=== PATIENT | female | born 1950 | race Asian ===

== ENCOUNTER 2018-10-31 10:28 | Day surgery (SDC) | payer MEDICARE, OTHER, SELFPAY ==
--- NOTE | 2018-10-31 | PATH_ITS ---
[facility] Accession Number: [id number] . 01 Material submitted: . PART A: colon - POLYP DESCENDING COLON PART B: colon - POLYP TRANSVERSE COLON PART C: sigmoid colon - POLYP SIGMOID COLON PART D: rectum - POLYP RECTUM . 01 Clinical history: . SCREENING COLONOSCOPY . 02 Diagnosis: A. Biopsy, Polyp Descending Colon: Tubular adenoma. . B. Biopsy, Polyp Transverse Colon: Tubular adenoma involving single biopsy fragment. . C. Biopsy, Polyp Sigmoid Colon: Tubular adenoma involving single biopsy fragment. . D. Biopsy, Polyp Rectum: Changes consistent with hyperplastic polyp. MRV/11/01/2018 . 02 Electronically signed: . Dylan Treviño MD, Pathologist NPI- [id number] . 01 Gross description: . Part A: POLYP DESCENDING COLON: Received in formalin is 1 fragment(s) of olmedo, soft tissue measuring 0.3 x 0.2 x 0.2 cm which is entirely submitted and submitted entirely in 1 cassette(s) Part B: POLYP TRANSVERSE COLON: Received in formalin are 2 fragment(s) of olmedo, soft tissue measuring 0.2 x 0.2 x 0.2 cm to 0.4 x 0.3 x 0.2 cm which is entirely submitted and submitted entirely in 1 cassette(s) Part C: POLYP SIGMOID COLON: Received in formalin are 2 fragment(s) of olmedo, soft tissue measuring 0.2 x 0.2 x 0.2 cm to 0.3 x 0.2 x 0.2 cm which is entirely submitted and submitted entirely in 1 cassette(s) Part D: POLYP RECTUM: Received in formalin is 1 fragment(s) of olmedo, soft tissue measuring 0.2 x 0.1 x 0.1 cm which is entirely submitted and submitted entirely in 1 cassette(s) /D[facility] /[facility] . 02 Pathologist provided ICD-10: D12.4 . 02 CPT . 646731, 995334, 600473, 374412 Performed at: 01 [facility] [address] [place] [address], [place], [place] [id number] MD Danny Pedroza MD Phone: [phone] Performed at: [address] [id number] [place], [place] [id number] MD Mary Madera MD Phone: [phone]
[2018-10-31] MEDS: SODIUM CHLORIDE 0.9% 1,000 ML 42 ML IV (10:47)
[2018-10-31 10:53] VITALS: BP 160/91; PULSE 70; RESP 18; TEMP 36.6; O2SAT 97; BMI 28.3
--- NOTE | 2018-10-31 12:23 | PM.HP.1 ---
History of Present Illness History of Present Illness Date Patient Seen: 10/31/18 Time Patient Seen: 12:23 Chief complaint: [id number] SCREENING COLONOSCOPY Narrative: History of polyps Patient History Medical History (Updated 10/31/18 @ 10:57 by Carrie Juan RN) Arthritis (Acute) Cataract fragments in both eyes following surgery (Acute) Hearing loss (Acute) Surgical History (Updated 10/31/18 @ 10:52 by Carrie Juan RN) History of hysterectomy with oophorectomy (Acute) History of total knee arthroplasty (Acute) Social History household members: spouse Family & Social History Social History: household members spouse Meds Home Medications and Allergies Home Medications Medication Instructions Recorded Confirmed Type naproxen sodium [Aleve] 220 mg PO PRN #0 04/15/11 10/31/18 History capsaicin [Arthritis Pain 1 applic TOPICAL BEDTIME 10/31/18 10/31/18 History Relief(capsaic)] loratadine-pseudoephedrine 1 tab PO DAILY PRN 10/31/18 10/31/18 History [Claritin-D 12 Hour] Allergies Allergy/AdvReac Type Severity Reaction Status Date / Time oxycodone Allergy Intermediate Rash Verified 10/31/18 10:44 adhesive Allergy Mild REDNESS/ITC Verified 10/31/18 10:48 HY hydrocodone Allergy Mild Rash Verified 10/31/18 10:44 Exam Vital Signs (past 8 hours): - 10/31/18 10:53 Temperature 97.8 F Pulse Rate 70 Respiratory Rate 18 Blood Pressure 160/91 H Pulse Oximetry 97 Oxygen Delivery Method Room Air Narrative Exam Narrative: Oropharynx free of lesions Chest clear to auscultation percussion Cardiac exam reveals no S3 or murmur Assessment & Plan Assessment & Plan narrative: History of polyps need for follow-up colonoscopy. Risks, benefits, alternatives have been explained.
--- NOTE | 2018-10-31 12:24 | PM.OP.ENDO ---
Operative Date/Time/Diagnoses Date of procedure: 10/31/18 Time of procedure: 12:25 Pre-op diagnosis: See indication and findings Procedure & Clinicians Study performed: Colonoscopy Same procedure as scheduled: Yes Indications: History of polyps Surgeon: Ross Newell Procedure Notes Procedure in detail: After informed consent was obtained the patient was placed in the left lateral decubitus position. The video colonoscope was introduced in the rectum and slowly advanced cecum. On slow withdrawal mucosa was carefully examined. The scope was removed. The patient tolerated procedure well. Preparation was good. Blood loss none Complications none Sedation Total sedation time 17 minutes Fentanyl 100 mg versed 3 mg IV titration During patient sedation clearly had episodes of sleep apnea. Findings 1. Small polyp in the descending colon Jumbo biopsy removed completely 2. Small polyp in the transverse colon Jumbo biopsy removed completely 3. Two diminutive polyps in the sigmoid colon both Jumbo biopsy removed completely 4. 3 mm polyp in the rectum Jumbo biopsy removed completely 5. Scattered diverticular disease through the sigmoid We will be in touch regarding biopsy results will she will probably need follow-up colonoscopy in 3 years. In the meantime I would suggest evaluation with a sleep study for her sleep apnea
[2018-10-31] MEDS: fentaNYL 250 MCG/5 ML INJ IV (12:40)
[2018-10-31] MEDS: MIDAZOLAM 5 MG/5 ML VIAL IV (12:51)
[2018-10-31 12:52] VITALS: BP 132/68; PULSE 67; RESP 15; TEMP 36.1; O2SAT 94
[2018-10-31 12:57] VITALS: BP 105/68; PULSE 68; RESP 15; O2SAT 92
[2018-10-31 13:02] VITALS: BP 140/83; PULSE 68; RESP 12; TEMP 36.5; O2SAT 96
== END 2018-10-31 13:17 | disposition home or self-care (01) ==
PROVIDERS: PCP Family Medicine; Visit Provider Internal Medicine Gastroenterology
PROC: 0DJD8ZZ Inspection of Lower Intestinal Tract, Via Natural or Artificial Opening Endoscopic (ICD-10-PCS; CPT 45378; principal; 2018-10-31 12:00)
DX: Z86.010 Personal history of colon polyps (principal); D12.4 Benign neoplasm of descending colon; D12.5 Benign neoplasm of sigmoid colon; D12.3 Benign neoplasm of transverse colon; K57.30 Diverticulosis of large intestine without perforation or abscess without bleeding; K62.1 Rectal polyp
CPT/HCPCS: 45380; 88305; J2250; J3010

== ENCOUNTER → 2019-01-12 10:18 | Outpatient (CLI) | payer MEDICARE, OTHER, SELFPAY ==
--- NOTE | 2019-01-12 | DI.MG.S_ITS ---
BILATERAL DIGITAL SCREENING MAMMOGRAM 3D/2D WITH CAD: 01/12/2019 CLINICAL: Routine screening. Comparison is made to exams dated: 12/28/2014 mammogram, 12/21/2015 mammogram, and 12/05/2017 mammogram - [facility]. The tissue of both breasts is predominantly fatty. Current study was also evaluated with a Computer Aided Detection (CAD) system. No significant masses, calcifications, or other findings are seen in either breast. There has been no significant interval change. IMPRESSION: NEGATIVE There is no mammographic evidence of malignancy. A 1 year screening mammogram is recommended. This exam was interpreted at Station ID: [id number]. NOTE: For mammograms, a report in lay terms will be sent to the patient. Approximately 15% of breast malignancies will not be visualized mammographically. In the management of a palpable breast mass, a negative mammogram must not discourage biopsy of a clinically suspicious lesion. Electronically Signed By: Frandy Ag M.D. at/kitty:01/13/2019 12:54:44 letter sent: Normal Exam ACR BI-RADS Category 1: Negative 3341F
== END ==
PROVIDERS: PCP Family Medicine; Visit Provider Family Medicine
DX: Z12.31 Encounter for screening mammogram for malignant neoplasm of breast (principal)
CPT/HCPCS: 77063; 77067

== ENCOUNTER → 2020-01-31 17:22 | Outpatient (CLI) | payer MEDICARE, OTHER, SELFPAY ==
--- NOTE | 2020-01-31 17:24 | DI.MG.S_ITS ---
BILATERAL DIGITAL SCREENING MAMMOGRAM 3D/2D WITH CAD: 01/31/2020 CLINICAL: Routine screening. Comparison is made to exams dated: 01/12/2019 mammogram - [facility], 12/05/2017 mammogram, and 12/21/2015 mammogram - [facility]. The tissue of both breasts is predominantly fatty. Current study was also evaluated with a Computer Aided Detection (CAD) system. No significant masses, calcifications, or other findings are seen in either breast. There has been no significant interval change. IMPRESSION: NEGATIVE There is no mammographic evidence of malignancy. A 1 year screening mammogram is recommended. This exam was interpreted at Station ID: [id number]. NOTE: For mammograms, a report in lay terms will be sent to the patient. Approximately 15% of breast malignancies will not be visualized mammographically. In the management of a palpable breast mass, a negative mammogram must not discourage biopsy of a clinically suspicious lesion. Electronically Signed By: Lelo miranda/kitty:02/04/2020 10:47:37 letter sent: Normal Exam ACR BI-RADS Category 1: Negative 3341F
== END ==
PROVIDERS: PCP Family Medicine; Referring Provider Family Medicine; Visit Provider Family Medicine
DX: Z12.31 Encounter for screening mammogram for malignant neoplasm of breast (principal)
CPT/HCPCS: 77063; 77067

== ENCOUNTER → 2020-04-21 10:47 | Outpatient (CLI) | payer MEDICARE, OTHER, SELFPAY ==
[2020-04-21 11:48] LABS: COVID19 -Nasal RAPID Negative (Negative)
== END ==
PROVIDERS: PCP Family Medicine; Visit Provider Family Medicine Sleep Medicine
DX: Z20.822 Contact with and (suspected) exposure to COVID-19 (principal); G47.30 Sleep apnea, unspecified; Z87.898 Personal history of other specified conditions
CPT/HCPCS: 87635; 99213; C9803

== ENCOUNTER → 2020-05-13 08:36 | Outpatient (CLI) | payer MEDICARE, OTHER, SELFPAY ==
[2020-05-13 10:47] LABS: COVID19 -Nasal RAPID Negative (Negative)
== END ==
PROVIDERS: PCP Family Medicine; Visit Provider Family Medicine Sleep Medicine
DX: Z20.822 Contact with and (suspected) exposure to COVID-19 (principal); G47.33 Obstructive sleep apnea (adult) (pediatric)
CPT/HCPCS: 87635; 95811

== ENCOUNTER → 2021-06-16 10:08 | Outpatient (CLI) | payer MEDICARE, OTHER, SELFPAY ==
--- NOTE | 2021-06-16 | DI.MG.S_ITS ---
BILATERAL DIGITAL SCREENING MAMMOGRAM 3D/2D WITH CAD: 06/16/2021 CLINICAL: Routine screening. Comparison is made to exams dated: 01/12/2019 mammogram - [facility], 12/05/2017 mammogram - [facility], and 01/31/2020 mammogram - [facility]. The tissue of both breasts is predominantly fatty. Current study was also evaluated with a Computer Aided Detection (CAD) system. No significant masses, calcifications, or other findings are seen in either breast. There has been no significant interval change. IMPRESSION: NEGATIVE There is no mammographic evidence of malignancy. A 1 year screening mammogram is recommended. This exam was interpreted at Station ID: [id number]. NOTE: For mammograms, a report in lay terms will be sent to the patient. Approximately 15% of breast malignancies will not be visualized mammographically. In the management of a palpable breast mass, a negative mammogram must not discourage biopsy of a clinically suspicious lesion. Electronically Signed By: Myles tai/kitty:06/16/2021 10:32:24 letter sent: Normal Exam ACR BI-RADS Category 1: Negative 3341F
== END ==
PROVIDERS: PCP Family Medicine; Referring Provider Family Medicine; Visit Provider Family Medicine
DX: Z12.31 Encounter for screening mammogram for malignant neoplasm of breast (principal)
CPT/HCPCS: 77063; 77067

== ENCOUNTER → 2021-11-19 09:10 | Outpatient (CLI) | payer MEDICARE, OTHER, SELFPAY ==
[2021-11-19 10:30] LABS: COVID19 -Nasal RAPID Negative (Negative)
== END ==
PROVIDERS: PCP Family Medicine; Visit Provider Surgery
DX: Z01.812 Encounter for preprocedural laboratory examination (principal); Z20.822 Contact with and (suspected) exposure to COVID-19
CPT/HCPCS: 87635; C9803

== ENCOUNTER 2021-11-22 09:03 | Day surgery (SDC) | payer MEDICARE, OTHER, SELFPAY ==
--- NOTE | 2021-11-22 | PATH_ITS ---
[facility] Accession Number: [id number] . 01 Material submitted: . PART A: sigmoid colon - 25CM SIGMOID COLON POLYP PART B: colon - RIGHT COLON POLYPS X5 PART C: sigmoid colon - SIGMOID COLON POLYP PART D: rectum - RECTAL POLYP . 01 Clinical history: . C: SESSILE (SEE REQ) DX COLONOSCOPY PERSONAL HISTORY OF COLONIC POLYPS . 01 Diagnosis: A. Sigmoid Colon Polyp at 25 cm, Biopsy: Tubular adenoma. . B. Right Colon Polyps, Biopsies: Tubular adenoma x4. Colonic mucosa with no diagnostic abnormality, consistent with polypoid redundancy x1. . C. Sigmoid Colon Polyp, Biopsy: Hyperplastic polyp. . D. Rectal Polyp, Biopsy: Hyperplastic polyp. [facility] 11/26/2021 1214 Local . 01 Electronically signed: . Patrice Salazar MD, PhD, Pathologist NPI- [id number] . 01 Gross description: . Part A: 25CM SIGMOID COLON POLYP: Received in formalin is 1 fragment(s) of olmedo, soft tissue measuring 0.5 x 0.4 x 0.3 cm submitted entirely in 1 cassette(s) Part B: RIGHT COLON POLYPS X5: Received in formalin are multiple fragment(s) of olmedo, soft tissue measuring 1.2 x 0.7 x 0.1 cm in aggregate submitted entirely in 1 cassette(s) Part C: SIGMOID COLON POLYP: Received in formalin are 3 fragment(s) of olmedo, soft tissue measuring 0.8 x 0.7 x 0.4 cm to 0.4 x 0.2 x 0.1 cm submitted entirely in 1 cassette(s) Part D: RECTAL POLYP: Received in formalin is 1 fragment(s) of olmedo, soft tissue measuring 0.3 x 0.1 x 0.1 cm submitted entirely in 1 cassette(s) /CPE 11/23/2021 0901 Local . 01 Pathologist provided ICD-10: D12.5, D12.6, K62.1 . 01 CPT . 977025, 687055, 260972, 882546 Performed at: 01 [facility] [address] [place] [address], [place], [place] [id number] MD Danny Pedroza MD Phone: [phone]
[2021-11-22 09:30] VITALS: BP 148/74; PULSE 71; RESP 18; TEMP 36.3; O2SAT 95; BMI 28.7
[2021-11-22] MEDS: SODIUM CHLORIDE 0.9% 1,000 ML 100 ML IV (09:48)
--- NOTE | 2021-11-22 10:10 | PM.HP.1 ---
History of Present Illness History of Present Illness Date Patient Seen: 11/22/21 Time Patient Seen: 10:10 Chief complaint: DX COLONOSCOPY Narrative: Personal history of colon polyps here for surveillance. Patient History Medical History Arthritis Cataract fragments in both eyes following surgery Chronic seasonal allergic rhinitis Hearing loss History of snoring Insomnia due to medical condition Obstructive sleep apnea, adult Surgical History History of hysterectomy with oophorectomy History of total knee arthroplasty Family & Social History Social History: household members spouse Tobacco & Substance use: Smoking Status Former smoker alcohol intake never Substance Use Type does not use Meds Home Medications and Allergies Home Medications Medication Instructions Recorded Confirmed Type naproxen sodium 220 mg tablet 220 mg PO PRN PRN Headache ##0 04/15/11 11/22/21 History (Aleve) capsaicin 0.075 % topical cream 1 applic topical BEDTIME 10/31/18 11/22/21 History (Arthritis Pain Relief (capsaicin)) loratadine 5 mg-pseudoephedrine ER 1 tab PO DAILY PRN allergies 10/31/18 11/22/21 History 120 mg tablet,extended release,12hr (Claritin-D 12 Hour) metformin 500 mg tablet 500 mg PO BID 04/21/20 11/22/21 History lisinopril 2.5 mg tablet 2.5 mg PO DAILY 11/22/21 11/22/21 History Allergies Allergy/AdvReac Type Severity Reaction Status Date / Time oxycodone Allergy Intermediate Rash Verified 09/07/21 13:09 adhesive Allergy Mild REDNESS/ITC Verified 09/07/21 13:09 HY hydrocodone Allergy Mild Rash Verified 09/07/21 13:09 Review of Systems Review of Systems ROS: Yes All systems reviewed with the patient and are negative except as otherwise documented Exam Vital Signs (past 8 hours): - 11/22/21 09:30 Temperature 97.4 F L Pulse Rate 71 Respiratory Rate 18 Blood Pressure 148/74 H Pulse Oximetry 95 Oxygen Delivery Method Room Air Oxygen Delivery Method Room Air Const General: cooperative HENMT Head: normal to inspection Eyes General: appearance normal, both eyes and all related structures Neck Neck: normal visual inspection Chest Chest: normal inspection of the chest Resp Effort & Inspection: normal respiratory effort Cardio Rate: regular rate GI Inspection: normal to inspection Skin General: no rashes or lesions noted Neuro General: patient alert and patient awake Extrem General: normal to inspection and no pedal edema Psych Appearance: grossly normal Assessment & Plan Assessment & Plan narrative: Personal history of colon polyps here for surveillance. Colonoscopy is planned for today. Time Spent With Patient Critical Care time: I spent a total of [] minutes of critical care time on this patient's care today; this time is exclusive of procedural time.
--- NOTE | 2021-11-22 10:14 | PM.PREOP ---
Pre-operative Note COVID-19 COVID-19 status: Negative Result date/Date tested (Pos, Neg/Pending): 11/19/21 Criteria for continued procedure: Possibility delay results in more complex future surgery or treatment Interval Note History & Physical reviewed/Exam performed by Physician: Yes Changes to H&P: No ASA Class (for procedural sedation): II
--- NOTE | 2021-11-22 12:00 | PM.OP.COLON ---
Operative Date/Time/Diagnoses Date of procedure: 11/22/21 Time of procedure: 12:00 Pre-op diagnosis: History of colon polyps Post-op diagnosis: same Procedure & Clinicians Study performed: Colonoscopy with hot and cold snare polypectomy Same procedure as scheduled: Yes Indications: Colon polyps history Surgeon: Dylan Farias Procedure Notes SCOAP/Timeout: Done Procedure in detail: After the risks and benefits were explained, written and verbal informed consent was obtained. The patient was brought into the procedure room and placed into the left lateral decubitus position. Please see nurse family and consumer sciences teacher notes for sedation details. Digital rectal examination was accomplished. The scope was introduced into the patient and advanced under direct visualization to the cecum as identified by the appendiceal orifice and ileocecal valve. The scope was slowly withdrawn to carefully examine the mucosa for any defects or lesions. Comprehensive imaging was accomplished throughout the rectum including the dentate line. The colon was decompressed, the scope was then removed from the patient who tolerated the procedure well. Prolonged procedure time secondary to multiple polyps. Twenty-two modifier is requested. Scope withdrawal time: 27 minutes Sedation minutes: 34 Complications: none Impression: There was a sessile 18 mm polyp in the sigmoid at about 25 cm from the anal verge removed with hot snare. There was a smaller pedunculated 8 mm polyp also removed with hot snare. In the rectum there was a diminutive 4 mm polyp removed with cold snare. In the right colon there were 5 polyps ranging in size from 5-7 mm each removed with hot snare. These were sessile. Endoscopic diagnosis Multiple colon polyps Post-procedure Plan for aftercare: 1. Await histopathology 2. Repeat colonoscopy 3 years. Disposition: PACU
[2021-11-22 12:02] VITALS: BP 99/66; PULSE 74; RESP 18; TEMP 36.4; O2SAT 96
[2021-11-22 12:07] VITALS: BP 127/77; PULSE 66; RESP 16; O2SAT 97
[2021-11-22 12:12] VITALS: BP 123/73; PULSE 70; RESP 16; O2SAT 99
[2021-11-22 12:21] VITALS: BP 137/79; PULSE 70; RESP 16; O2SAT 97
== END 2021-11-22 12:28 | disposition home or self-care (01) ==
PROVIDERS: PCP Family Medicine; Referring Provider Internal Medicine Gastroenterology; Visit Provider Internal Medicine Gastroenterology
PROC: 0DJD8ZZ Inspection of Lower Intestinal Tract, Via Natural or Artificial Opening Endoscopic (ICD-10-PCS; CPT 45378; principal; 2021-11-22 10:00)
DX: Z12.11 Encounter for screening for malignant neoplasm of colon (principal); Z86.010 Personal history of colon polyps; G47.33 Obstructive sleep apnea (adult) (pediatric); D12.5 Benign neoplasm of sigmoid colon; D12.2 Benign neoplasm of ascending colon; K62.1 Rectal polyp
CPT/HCPCS: 45385; J2704

== ENCOUNTER 2022-06-03 21:58 | Emergency (ER) | payer MEDICARE, OTHER, SELFPAY ==
[2022-06-03 22:06] VITALS: BP 159/75; PULSE 114; RESP 18; TEMP 37.6; O2SAT 93; BMI 28.3
[2022-06-03 22:39] LABS: RBC Urine 1-5/HPF (0-5/HPF); WBC Urine 30-100/HPF (0-5/HPF)
[2022-06-03 22:40] LABS: Bacteria Urine Few (2-10); Squamous Epithelial Cell Urine 0-1 /HPF (0-5/HPF)
--- NOTE | 2022-06-03 22:53 | ED.FEMALEGU ---
HPI - Female Genitourinary General Chief complaint: Urogenital-Female Stated complaint: Bladder infection, Headache Time Seen by Provider: 06/03/22 22:01 Mode of arrival: Ambulatory History of Present Illness HPI Narrative: 71-year-old female nonsmoker with history of hypertension, sleep apnea, insomnia and prior UTIs presents with her in the chief complaint of a few days of dysuria, frequency and urgency with some minimal flank pain along with fever and chills. She is been nauseated but denies any vomiting. She is not dizzy nor weak or lightheaded. She denies any chest pain or shortness of breath. She denies abdominal pain, constipation or diarrhea. Related Data Home Medications Medication Instructions Recorded Confirmed naproxen sodium 220 mg tablet 220 mg PO PRN PRN Headache ##0 04/15/11 11/22/21 (Aleve) capsaicin 0.075 % topical cream 1 applic topical BEDTIME 10/31/18 11/22/21 (Arthritis Pain Relief (capsaicin)) loratadine 5 mg-pseudoephedrine ER 1 tab PO DAILY PRN allergies 10/31/18 11/22/21 120 mg tablet,extended release,12hr (Claritin-D 12 Hour) metformin 500 mg tablet 500 mg PO BID 04/21/20 11/22/21 lisinopril 2.5 mg tablet 2.5 mg PO DAILY 11/22/21 11/22/21 Previous Rx's Medication Instructions Recorded cefpodoxime 200 mg tablet 200 mg PO BID 10 days #20 tabs 06/04/22 Allergies Allergy/AdvReac Type Severity Reaction Status Date / Time oxycodone Allergy Intermediate Rash Verified 09/07/21 13:09 adhesive Allergy Mild REDNESS/ITC Verified 09/07/21 13:09 HY hydrocodone Allergy Mild Rash Verified 09/07/21 13:09 Review of Systems Review of Systems Narrative: GENERAL: See HPI HEENT: Denies sinus pain, ear pain, sore throat, difficulty swallowing, dizziness. RESPIRATORY: Denies dyspnea, cough, wheezing, hemoptysis, sputum. CARDIOVASCULAR: Denies chest pain, palpitations, orthopnea, edema, GASTROINTESTINAL: Denies nausea, vomiting, abdominal pain, diarrhea, constipation, melena. : See HPI MUSCULOSKELETAL: denies weakness, joint pain, or bony pain SKIN: Denies rash, skin lesions, or other NEUROLOGIC: Denies weakness, headache, numbness, change in speech, confusion, seizures, incoordination. PSYCHIATRIC: No concerning psychosocial issues. 12 point review of systems is negative except for those stated above Patient History Medical History Arthritis Cataract fragments in both eyes following surgery Chronic seasonal allergic rhinitis Hearing loss History of snoring Insomnia due to medical condition Obstructive sleep apnea, adult Surgical History History of hysterectomy with oophorectomy History of total knee arthroplasty Substance Use Type: does not use Exam Narrative Exam Narrative: GENERAL: [71] year old patient appears stated age. Well-developed patient, in mild distress. HEAD: Atraumatic. Normocephalic. EYES: Pupils equal round and reactive. Extraocular motions intact. No scleral icterus. No injection or drainage. ENT: Nose without bleeding, purulent drainage. Throat without erythema, tonsillar hypertrophy or exudate. Airway patent. NECK: Trachea midline. Non tender CARDIOVASCULAR: Tachycardic and regular rhythm without murmurs, gallops, or rubs. RESPIRATORY: Clear to auscultation. Breath sounds equal bilaterally. No wheezes, rales, or rhonchi. GASTROINTESTINAL: Abdomen soft, non-tender, nondistended. EXTREMITIES: No edema or joint tenderness. BACK: Nontender without deformity or crepitance. No flank tenderness. NEURO: AOx3. SKIN: No rash or erythema of visible areas Initial Vital Signs Initial Vital Signs: Vital Signs Temperature 99.6 F 06/03/22 22:06 Pulse Rate 114 H 06/03/22 22:06 Respiratory Rate 18 06/03/22 22:06 Blood Pressure 159/75 H 06/03/22 22:06 Pulse Oximetry 93 06/03/22 22:06 Oxygen Delivery Method Room Air 06/03/22 22:06 Course Orders Ordered: Discontinued Medications Sodium Chloride (Normal Saline 0.9%) 1,000 mls @ 1,000 mls/hr IV BOLUS ONE Stop: 06/04/22 01:23 Last Infusion: 06/04/22 02:00 Dose: 0 mls/hr Documented By: Admin: 06/04/22 00:50 Dose: 1,000 mls/hr Documented By: SERA Ceftriaxone Sodium 1,000 mg/ (Sodium Chloride) 100 mls @ 200 mls/hr IV NOW ONE Stop: 06/04/22 01:31 Last Infusion: 06/04/22 02:34 Dose: 0 mls/hr Documented By: Admin: 06/04/22 02:14 Dose: 200 mls/hr Documented By: SERA Reevaluation(s) Reevaluation #1: Patient with significant improvement after above-stated therapies Vital Signs Vital signs: Vital Signs - 8 hr 06/03/22 22:06 Temperature 99.6 F Pulse Rate 114 H Respiratory Rate 18 Blood Pressure 159/75 H Pulse Oximetry 93 Oxygen Delivery Method Room Air MDM - Female Genitourinary Lab Data 06/04/22 00:45 06/04/22 00:45 Labs: Lab Results 06/03/22 06/04/22 06/04/22 Range/Units 22:16 00:45 00:45 WBC 7.7 (4.5-11.0) X10^3/uL RBC 5.06 (4.0-5.2) X10^6/uL Hgb 11.1 L (12.0-16.0) g/dL Hct 35.8 L (36-46) % MCV 70.7 L (80-100) fL MCH 22.0 L (26-34) PG MCHC 31.1 (30-36) % RDW 19.1 H (11.6-14.8) % Plt Count 166 (150-400) X10^3/uL Neut % (Auto) 83.1 H (50-75) % Lymph % (Auto) 11.3 L (25-40) % [place] % (Auto) 4.8 (3-14) % Eos % (Auto) 0.4 L (2-4) % Baso % (Auto) 0.4 (0-2) % Neut # (Auto) 6400 (1523-2470) /uL Lymph # (Auto) 900 L (1443-7965) /uL [place] # (Auto) 400 (0-900) /uL Eos # (Auto) 0 (0-450) /uL Baso # (Auto) 0 (0-100) /uL Sodium 137 (137-145) mmol/L Potassium 3.7 (3.4-5.1) mmol/L Chloride 104 (98-107) mmol/L Carbon Dioxide 23 (22-32) mmol/L BUN 14 (7-17) mg/dL Creatinine 0.43 L (0.52-1.04) mg/dL Estimated GFR > 60 (>60) mL/min BUN/Creatinine Ratio 32.6 H (6-22) Glucose 220 H (80-110) mg/dL Lactate (0.7-2.1) mmol/L Calcium 9.1 (8.4-10.2) mg/dL Magnesium 1.6 (1.6-2.3) mg/dL Total Bilirubin 1.0 (0.2-1.3) mg/dL AST 53 H (14-36) IU/L ALT 32 (<35) IU/L Alkaline Phosphatase 75 (38-126) U/L Total Protein 7.7 (6.3-8.2) g/dL Albumin 4.2 (3.5-5.0) g/dL Globulin 3.5 (1.7-4.1) g/dL Albumin/Globulin Ratio 1.2 (1.0-2.8) Lipase 97 (23-300) U/L Urine RBC 1-5/hpf (0-5/HPF) Urine WBC 30-100/hpf H (0-5/HPF) Ur Squamous Epith Cells 0-1 /hpf (0-5/HPF) Urine Bacteria Few (2-10) H (None) 06/04/22 Range/Units 00:45 WBC (4.5-11.0) X10^3/uL RBC (4.0-5.2) X10^6/uL Hgb (12.0-16.0) g/dL Hct (36-46) % MCV (80-100) fL MCH (26-34) PG MCHC (30-36) % RDW (11.6-14.8) % Plt Count (150-400) X10^3/uL Neut % (Auto) (50-75) % Lymph % (Auto) (25-40) % [place] % (Auto) (3-14) % Eos % (Auto) (2-4) % Baso % (Auto) (0-2) % Neut # (Auto) (2992-0866) /uL Lymph # (Auto) (5862-2672) /uL [place] # (Auto) (0-900) /uL Eos # (Auto) (0-450) /uL Baso # (Auto) (0-100) /uL Sodium (137-145) mmol/L Potassium (3.4-5.1) mmol/L Chloride (98-107) mmol/L Carbon Dioxide (22-32) mmol/L BUN (7-17) mg/dL Creatinine (0.52-1.04) mg/dL Estimated GFR (>60) mL/min BUN/Creatinine Ratio (6-22) Glucose (80-110) mg/dL Lactate 1.4 (0.7-2.1) mmol/L Calcium (8.4-10.2) mg/dL Magnesium (1.6-2.3) mg/dL Total Bilirubin (0.2-1.3) mg/dL AST (14-36) IU/L ALT (<35) IU/L Alkaline Phosphatase (38-126) U/L Total Protein (6.3-8.2) g/dL Albumin (3.5-5.0) g/dL Globulin (1.7-4.1) g/dL Albumin/Globulin Ratio (1.0-2.8) Lipase (23-300) U/L Urine RBC (0-5/HPF) Urine WBC (0-5/HPF) Ur Squamous Epith Cells (0-5/HPF) Urine Bacteria (None) Urine Dip Bedside Urine Glucose 100 mg/dl Bedside Urine Bilirubin - Negative Bedside Urine Ketone - Negative Urine Specific [place] 1.015 Bedside Urine Occult Blood +++ Bedside Urine pH 8.5 Bedside Urine Protein ++ 100 Bedside Urine Urobilinogen +/- 1mg Bedside Urine Nitrite - Negative Bedside Urine Leukocytes ++ 125 Esterase MDM Narrative Medical decision making narrative: [71] year old patient presents with UTI symptoms, fever, chills Multiple etiologies for patient's symptoms considered including, but not limited to: [UTI, pyelo, sepsis vs. other] Prior Charts reviewed in our EMR Primary Historian: patient Labs reviewed and interpreted by myself: No leukocytosis or left shift, lactate and Procardia within normal limits, electrolytes and renal function also within normal range Patient's symptoms improved over duration of stay with above-stated therapies. Findings and discharge diagnosis discussed with patient/family followed by verbalization of understanding Return precautions discussed with patient/family whom verbalize understanding of diagnosis and plan Discharge Plan Departure Patient Disposition: Home Clinical Impression: Urinary tract infection Instructions: DI for Urinary Tract Infection (UTI) Activity Restrictions/Additional Instructions: *You have been diagnosed with [UTI] *What to do: *Please continue to take your regular medications as directed. [x] New medication prescriptions sent to your pharmacy: [[facility] ] [ ] New medication written as a paper prescription [ ] No new medications given *Please follow up with your primary care provider in 2-3 days, call for an appointment. Let them know you were seen in the Emergency Department and that we ask that you be seen in follow up. We will electronically transmit a record of today's note if your PCP is in our system *If you do not have a primary care provider please contact the [facility] Resource line at [phone]. They will ask some questions about your medical history and help get you set up with a doctor in the community. *Return to Emergency Department if you should have any new, worsening or concerning symptoms, such as [fever greater than 101 F, shaking chills, worsening pain, persistent vomiting or other bothersome symptoms] Prescriptions: New cefpodoxime 200 mg tablet 200 mg PO BID 10 Days Qty: 20 0RF Rx Instructions: must administer with a meal/food No Action naproxen sodium [Aleve] 220 MG tablet 220 mg PO PRN PRN (Reason: Headache) Qty: 0 capsaicin [Arthritis Pain Relief(capsaic)] 0.075 % Cream 1 applic TOPICAL BEDTIME Claritin-D 12 Hour 5-120 mg Tablet Extended Release 12 Hr 1 tab PO DAILY PRN (Reason: allergies) lisinopril 2.5 mg Tablet 2.5 mg PO DAILY metformin 500 mg tablet 500 mg PO BID Referrals: Michelle Marley MD [Primary Care Provider] - Stand Alone Forms: Patient Portal/API
[2022-06-03 23:27] VITALS: PULSE 111; O2SAT 94
[2022-06-03 23:28] VITALS: BP 133/61; PULSE 111; O2SAT 94
[2022-06-03 23:36] VITALS: BP 133/61; PULSE 107; PULSE 108; RESP 18; O2SAT 95
[2022-06-04 00:12] VITALS: PULSE 104; O2SAT 96
[2022-06-04 00:22] VITALS: PULSE 102
[2022-06-04 00:30] VITALS: PULSE 107; O2SAT 92
[2022-06-04] MEDS: SODIUM CHLORIDE 0.9% 1,000 ML 1000 ML IV (00:50)
[2022-06-04 00:52] VITALS: PULSE 97
[2022-06-04 00:56] LABS: Add Manual Diff / Slide Review NO; Basophils Absolute Auto 0 /uL (0-100); Basophils Percent Auto 0.4 % (0-2); Eosinophils Absolute Auto 0 /uL (0-450); Eosinophils Percent Auto 0.4 % (2-4); Hematocrit 35.8 % (36-46); Hemoglobin 11.1 g/dL (12.0-16.0); Lymphocytes Absolute Auto 900 /uL (1100-4500); Lymphocytes Percent Auto 11.3 % (25-40); Mean Corpuscular HGB Conc 31.1 % (30-36); Mean Corpuscular Volume 70.7 fL (80-100); Monocytes Absolute Auto 400 /uL (0-900); Monocytes Percent Auto 4.8 % (3-14); Neutrophils Absolute Auto 6400 /uL (1500-7000); Neutrophils Percent Auto 83.1 % (50-75); Platelet Count 166 X10^3/uL (150-400); Red Blood Cell Count 5.06 X10^6/uL (4.0-5.2); Red Cell Distribution Width 19.1 % (11.6-14.8); White Blood Cell Count 7.7 X10^3/uL (4.5-11.0)
[2022-06-04 01:09] LABS: Alanine Aminotransferase 32 IU/L (<35); Albumin 4.2 g/dL (3.5-5.0); Albumin Globulin Ratio 1.2 (1.0-2.8); Alkaline Phosphatase 75 U/L (38-126); Aspartate Aminotransferase 53 IU/L (14-36); BUN Creatinine Ratio 32.6 (6-22); Blood Urea Nitrogen 14 mg/dL (7-17); Calcium 9.1 mg/dL (8.4-10.2); Carbon Dioxide 23 mmol/L (22-32); Chloride 104 mmol/L (98-107); Estimated Glomerular Filt Rate > 60 mL/min (>60); Globulin 3.5 g/dL (1.7-4.1); Glucose 220 mg/dL (80-110); HEMOLYSIS < 15 (0-50); Lipase 97 U/L (23-300); Magnesium 1.6 mg/dL (1.6-2.3); Potassium 3.7 mmol/L (3.4-5.1); Sodium 137 mmol/L (137-145); Total Protein 7.7 g/dL (6.3-8.2)
[2022-06-04 01:10] LABS: Lactate (Lactic Acid) 1.4 mmol/L (0.7-2.1)
[2022-06-04] MEDS: cefTRIAXone 1,000 MG in SODIUM CHLORIDE 0.9% 100 ML 200 MG IV (02:14)
[2022-06-04 02:34] VITALS: BP 143/71; PULSE 89; RESP 18; O2SAT 94
--- NOTE | 2022-06-04 11:37 | DI.RAD.S_ITS ---
PROCEDURE: XR CHEST 1V INDICATIONS: Septic TECHNIQUE: One view of the chest was acquired. COMPARISON: None. FINDINGS: Surgical changes and devices: None. Lungs and pleura: Lungs are clear. No pleural effusions or pneumothorax. Mediastinum: Mediastinal contours appear normal. Heart size is normal. Bones and chest wall: No suspicious bony lesions. Overlying soft tissues appear unremarkable. IMPRESSION: 1. No acute cardiopulmonary disease. Dictated by: Danny Holman M.D. on 06/04/2022 at 1:27 Approved by: Danny Holman M.D. on 06/04/2022 at 1:27
== END 2022-06-04 02:35 | disposition home or self-care (01) ==
PROVIDERS: Emergency Provider Emergency Medicine; PCP Family Medicine
DX: N39.0 Urinary tract infection, site not specified (principal); R11.0 Nausea; Z79.899 Other long term (current) drug therapy; R79.89 Other specified abnormal findings of blood chemistry
CPT/HCPCS: 36415; 71045; 80053; 81003; 81015; 83605; 83690; 83735; 85025; 87040; 87077; 87086; 87186; 96361; 96365; 99284; J0696

== ENCOUNTER → 2022-09-01 09:51 | Outpatient (CLI) | payer MEDICARE, OTHER, SELFPAY ==
[2022-09-01 10:35] LABS: Add Manual Diff / Slide Review NO; Basophils Absolute Auto 100 /uL (0-100); Basophils Percent Auto 1.1 % (0-2); Eosinophils Absolute Auto 200 /uL (0-450); Eosinophils Percent Auto 4.4 % (2-4); Hematocrit 35.4 % (36-46); Hemoglobin 11.2 g/dL (12.0-16.0); Lymphocytes Absolute Auto 1500 /uL (1100-4500); Lymphocytes Percent Auto 31.2 % (25-40); Mean Corpuscular HGB Conc 31.7 % (30-36); Mean Corpuscular Hemoglobin 23.4 PG (26-34); Monocytes Absolute Auto 300 /uL (0-900); Monocytes Percent Auto 5.5 % (3-14); Neutrophils Absolute Auto 2800 /uL (1500-7000); Neutrophils Percent Auto 57.8 % (50-75); Platelet Count 145 X10^3/uL (150-400); Red Blood Cell Count 4.78 X10^6/uL (4.0-5.2); Red Cell Distribution Width 18.2 % (11.6-14.8); White Blood Cell Count 4.8 X10^3/uL (4.5-11.0)
[2022-09-01 11:00] LABS: Alanine Aminotransferase 36 IU/L (<35); Albumin 3.9 g/dL (3.5-5.0); Albumin Globulin Ratio 1.1 (1.0-2.8); Alkaline Phosphatase 78 U/L (38-126); Aspartate Aminotransferase 66 IU/L (14-36); Bilirubin Total 0.9 mg/dL (0.2-1.3); Bilirubin Unconjugated 0.6 mg/dL (0.0-1.1); Globulin 3.5 g/dL (1.7-4.1); HEMOLYSIS < 15 (0-50); Total Protein 7.4 g/dL (6.3-8.2)
== END ==
PROVIDERS: PCP Family Medicine; Referring Provider Podiatrist; Visit Provider Podiatrist
DX: B35.1 Tinea unguium (principal)
CPT/HCPCS: 36415; 80076; 85025

== ENCOUNTER → 2022-10-19 10:20 | Outpatient (CLI) | payer MEDICARE, OTHER, SELFPAY ==
[2022-10-19 11:24] LABS: Add Manual Diff / Slide Review NO; Basophils Absolute Auto 0 /uL (0-100); Basophils Percent Auto 1.1 % (0-2); Eosinophils Absolute Auto 200 /uL (0-450); Eosinophils Percent Auto 4.9 % (2-4); Hematocrit 35.7 % (36-46); Hemoglobin 11.6 g/dL (12.0-16.0); Lymphocytes Absolute Auto 1100 /uL (1100-4500); Lymphocytes Percent Auto 26.9 % (25-40); Mean Corpuscular HGB Conc 32.4 % (30-36); Mean Corpuscular Volume 77.2 fL (80-100); Monocytes Absolute Auto 200 /uL (0-900); Monocytes Percent Auto 5.5 % (3-14); Neutrophils Absolute Auto 2600 /uL (1500-7000); Neutrophils Percent Auto 61.6 % (50-75); Platelet Count 122 X10^3/uL (150-400); Red Blood Cell Count 4.63 X10^6/uL (4.0-5.2); White Blood Cell Count 4.3 X10^3/uL (4.5-11.0)
[2022-10-19 11:42] LABS: Alanine Aminotransferase 38 IU/L (<35); Albumin 3.8 g/dL (3.5-5.0); Albumin Globulin Ratio 1.2 (1.0-2.8); Alkaline Phosphatase 77 U/L (38-126); Aspartate Aminotransferase 76 IU/L (14-36); Bilirubin Total 0.5 mg/dL (0.2-1.3); Bilirubin Unconjugated 0.4 mg/dL (0.0-1.1); Globulin 3.1 g/dL (1.7-4.1); HEMOLYSIS < 15 (0-50); Total Protein 6.9 g/dL (6.3-8.2)
== END ==
PROVIDERS: PCP Nurse Practitioner Family; Referring Provider Podiatrist; Visit Provider Podiatrist
DX: M79.674 Pain in right toe(s) (principal); B35.1 Tinea unguium; B35.3 Tinea pedis
CPT/HCPCS: 36415; 80076; 85025

== ENCOUNTER → 2023-11-03 11:50 | Outpatient (CLI) | payer MEDICARE, OTHER, SELFPAY ==
--- NOTE | 2023-11-03 11:51 | DI.RAD.S_ITS ---
PROCEDURE: XR DEXA AXIAL SKELETON INDICATIONS: SCREENING FOR OSTEOPOROSIS COMPARISON: None. FINDINGS: Lumbar Spine: Bone mineral density is 0.965 g/cm2, T score -0.7. Left Hip: Bone mineral density 0.794 g/cm2, T score -1.2. Left Femoral Neck: Bone mineral density 0.667 g/cm2, T score -1.6. Right Hip: Bone mineral density 0.851 g/cm2, T score -0.7. Right Femoral Neck: Bone mineral density is 0.717 g/cm2, T score -1.2. Fracture Risk Calculation (when applicable): 10-year fracture risk of a major osteoporotic fracture 11% and of a hip fracture 2.1%. (T score greater or equal to -1.0 to: NORMAL) (T score from -1.1 to -2.4: OSTEOPENIA) (T score less than or equal to -2.5: OSTEOPOROSIS) IMPRESSION: Osteopenia with increased 10 year fracture risk as above. Follow-up guidelines as follows: Osteoporosis: Consider a repeat DEXA and Vertebral Fracture Assessment (VFA) exam in 2 years or sooner if medically necessary, to reassess this patient's status. Osteopenia: Consider a repeat DEXA in 2-3 years to reassess this patient's status, or if there is a new clinical indication. Normal: Consider a repeat DEXA in 5 years or sooner, or if there is a new clinical indication. All treatment decisions require clinical judgment and consideration of individual patient factors, including patient preferences, comorbidities, previous drug use, risk factors not captured in the FRAX model (e.g., frailty, falls, vitamin D deficiency, increased bone turnover, interval significant decline in bone density ) and possible under- or over-estimation of fracture risk by FRAX. In addition, the NOF Guide recommends that FDA-approved medical therapies be considered in postmenopausal women and men age >= 50 years with a: * Hip or vertebral (clinical or morphometric) fracture * T-score of <=-2.5 at the spine or hip * Ten-year fracture probability by FRAX of >= 3% for hip fracture or >=20% for major osteoporotic fracture. People with diagnosed cases of osteoporosis or at high risk for fracture should have regular bone mineral density tests. For patients eligible for Medicare, routine testing is allowed once every 2 years. The testing frequency can be increased to one year for patients who have rapidly progressing disease, those who are receiving or discontinuing medical therapy to restore bone mass, or have additional risk factors. Dictated by: Kj Lopez M.D. on 11/03/2023 at 14:17 Approved by: Kj Lopez M.D. on 11/03/2023 at 14:20
== END ==
PROVIDERS: PCP Nurse Practitioner Family
DX: M85.89 Other specified disorders of bone density and structure, multiple sites (principal); Z78.0 Asymptomatic menopausal state
CPT/HCPCS: 77080

== ENCOUNTER → 2023-11-14 13:24 | Outpatient (CLI) | payer MEDICARE, OTHER, SELFPAY ==
--- NOTE | 2023-11-14 13:26 | DI.US.S_ITS ---
PROCEDURE: US THYROID INDICATIONS: NON TOXIC SINGLE NODULE TECHNIQUE: Real-time scanning was performed of the thyroid gland, with image documentation. COMPARISON: None. FINDINGS: Thyroid: Right lobe measures 7.2 x 2.7 x 2.8 cm. Left lobe measures 6.3 x 2.4 x 2.0 cm. Isthmus is 0.5 cm thick. Echotexture is heterogenous Multiple thyroid nodules present. Largest 4 are below. Nodule number: 1 Location: Right mid Size: 1.3 x 1.4 x 1.0 cm. Composition: Predominantly cystic Echogenicity: Isoechoic Shape: wider than tall. Margins: Smooth Echogenic foci: None Total points: 2 ACR TI-RADS category: 2 Nodule number: 2 Location: Right inferior Size: 1.4 x 1.4 x 1.1 cm. Composition: Solid Echogenicity: Hypoechoic Shape: wider than tall. Margins: Smooth Echogenic foci: None Total points: 4 ACR TI-RADS category: 4 Nodule number: 3 Location: Right inferior-anterior Size: 1.6 x 1.7 x 1.3 cm. Composition: Predominantly solid Echogenicity: Isoechoic Shape: wider than tall. Margins: Smooth Echogenic foci: None Total points: 2 ACR TI-RADS category: 2 Nodule number: 4 Location: Left superior Size: 1.3 x 0.7 x 0.7 cm. Composition: Predominantly solid Echogenicity: Hypoechoic Shape: wider than tall. Margins: Smooth Echogenic foci: None Total points: 3 ACR TI-RADS category: 3 IMPRESSION: Multinodular goiter. Category 4 nodule requires follow-up as per ACR guidelines below ACR TI-RADS definitions and recommendations: TI-RADS 1 (benign): 0 points. FNA not needed. TI-RADS 2 (not suspicious): 2 points. FNA not needed. TI-RADS 3 (mildly suspicious): 3 points. * FNA if 2.5 cm or larger, follow up if 1.5 cm or larger (at 1, 3, and 5 years). TI-RADS 4 (moderately suspicious): 4-6 points. * FNA if 1.5 cm or larger, follow up if 1 cm or larger (at 1, 2, 3, and 5 years). TI-RADS 5 (highly suspicious): 7 points or more. * FNA if 1 cm or larger, follow up if 0.5 cm or larger (every year for 5 years). 1. Dictated by: Carlos Montoya M.D. on 11/16/2023 at 17:23 Approved by: Carlos Montoya M.D. on 11/16/2023 at 17:28
== END ==
PROVIDERS: PCP Nurse Practitioner Family; Referring Provider Nurse Practitioner Family; Visit Provider Nurse Practitioner Family
DX: E04.2 Nontoxic multinodular goiter (principal)
CPT/HCPCS: 76536

== ENCOUNTER 2024-06-02 15:14 | Emergency (ER) | payer MEDICARE, OTHER, SELFPAY ==
[2024-06-02 15:18] VITALS: BP 138/87; PULSE 78; RESP 18; TEMP 36.5; O2SAT 95; BMI 31.1
--- NOTE | 2024-06-02 15:23 | DI.RAD.S_ITS ---
PROCEDURE: XR HAND LT MIN 3V INDICATIONS: hand caught in door 06/01; damage to 4th and 5th fingers TECHNIQUE: 3 views of the hand(s) acquired. COMPARISON: None. FINDINGS/IMPRESSION: 4th and 5th digit tuft fractures. Dictated by: Kai Morales M.D. on 06/02/2024 at 15:55 Approved by: Kai Morales M.D. on 06/02/2024 at 15:55
--- NOTE | 2024-06-02 17:25 | ED_ITS ---
HPI - Extremity Injury (Upper) <Gregory Skinner PA-C - Last Filed: 06/02/24 17:38> General Chief Complaint: Extremity Injury, Upper Stated Complaint: lt hand fingers caught in door t-1 Time Seen by Provider: 06/02/24 15:58 Source: patient and family Mode of arrival: Ambulatory History of Present Illness HPI narrative: This is a 73-year-old female presenting to the emergency department due to Left finger pain. She was using a door when it was slammed on her last 4th and 5th digits near the distal ends. Reports some pain. No other injuries to her hand remainder of her body. Denies any numbness. Not on blood thinners. Tetanus is up-to-date. Related Data Home Medications Medication Instructions Recorded Confirmed naproxen sodium 220 mg tablet 220 mg PO PRN PRN Headache ##0 04/15/11 11/22/21 (Aleve) capsaicin 0.075 % topical cream 1 applic topical BEDTIME 10/31/18 11/22/21 (Arthritis Pain Relief (capsaicin)) loratadine 5 mg-pseudoephedrine ER 1 tab PO DAILY PRN allergies 10/31/18 11/22/21 120 mg tablet,extended release,12hr (Claritin-D 12 Hour) metformin 500 mg tablet 500 mg PO BID 04/21/20 11/22/21 lisinopril 2.5 mg tablet 2.5 mg PO DAILY 11/22/21 11/22/21 Previous Rx's Medication Instructions Recorded cephalexin 500 mg capsule 500 mg PO QID #28 caps 06/02/24 Allergies Allergy/AdvReac Type Severity Reaction Status Date / Time oxycodone Allergy Intermediate Rash Verified 09/07/21 13:09 adhesive Allergy Mild REDNESS/ITC Verified 09/07/21 13:09 HY hydrocodone Allergy Mild Rash Verified 09/07/21 13:09 Review of Systems <Gregory Skinner PA-C - Last Filed: 06/02/24 17:38> Review of Systems Narrative: GENERAL: Denies chills, fatigue, malaise, fever, sweats. HEENT: Denies sinus pain, ear pain, sore throat, difficulty swallowing, dizziness. RESPIRATORY: Denies dyspnea, cough, wheezing, hemoptysis, sputum. CARDIOVASCULAR: Denies chest pain, palpitations, orthopnea, edema, GASTROINTESTINAL: Denies nausea, vomiting, abdominal pain, diarrhea, constipation, melena. : Denies dysuria, frequency, incontinence, hematuria, urinary retention. MUSCULOSKELETAL: left 4th finger and 5th finger digit pain SKIN: Denies rash, skin lesions, or other NEUROLOGIC: Denies weakness, headache, numbness, change in speech, confusion, seizures, incoordination. PSYCHIATRIC: No concerning psychosocial issues. 12 point review of systems is negative except for those stated above Patient History <Gregory Skinner PA-C - Last Filed: 06/02/24 17:38> Medical History Arthritis Cataract fragments in both eyes following surgery Chronic seasonal allergic rhinitis Hearing loss History of snoring Insomnia due to medical condition Obstructive sleep apnea, adult Surgical History History of hysterectomy with oophorectomy History of total knee arthroplasty Social History household members: spouse Smoking Status: Former smoker alcohol intake: never Smoking Status: Former smoker Exam <Gregory Skinner PA-C - Last Filed: 06/02/24 17:38> Narrative Exam Narrative: GENERAL: Well-developed patient, in mild distress. HEAD: Atraumatic. Normocephalic. EYES: Pupils equal round and reactive. Extraocular motions intact. No scleral icterus. No injection or drainage. ENT: Nose without bleeding, purulent drainage. Throat without erythema, tonsillar hypertrophy or exudate. Airway patent. NECK: Trachea midline. Non tender EXTREMITIES: diffuse ecchymosis affecting the left distal portions of the right 4th and 5th digits. Neurovascularly intact. nails are heavily polished. Small superficial abrasions but deep lacerations. NEURO: AOx3. SKIN: No rash or erythema of visible areas Initial Vital Signs Initial Vital Signs: Vital Signs Temperature 97.7 F 06/02/24 15:18 Pulse Rate 78 06/02/24 15:18 Respiratory Rate 18 06/02/24 15:18 Blood Pressure 138/87 06/02/24 15:18 Pulse Oximetry 95 06/02/24 15:18 Oxygen Delivery Method Room Air 06/02/24 15:18 <Netta Paul DO - Last Filed: 06/03/24 09:53> Initial Vital Signs Initial Vital Signs: Vital Signs Temperature 97.7 F 06/02/24 15:18 Pulse Rate 78 06/02/24 15:18 Respiratory Rate 18 06/02/24 15:18 Blood Pressure 138/87 06/02/24 15:18 Pulse Oximetry 95 06/02/24 15:18 Oxygen Delivery Method Room Air 06/02/24 15:18 Course <Gregory Skinner PA-C - Last Filed: 06/02/24 17:38> Orders Ordered: ED Orders 06/02/24 15:23 XR hand LT min 3V Stat Vital Signs Vital signs: Vital Signs - 8 hr 06/02/24 15:18 Temperature 97.7 F Pulse Rate 78 Respiratory Rate 18 Blood Pressure 138/87 Pulse Oximetry 95 Oxygen Delivery Method Room Air <Netta Paul DO - Last Filed: 06/03/24 09:53> Orders Ordered: ED Orders 06/02/24 15:23 XR hand LT min 3V Stat Vital Signs Vital signs: Vital Signs - 8 hr 06/02/24 15:18 Temperature 97.7 F Pulse Rate 78 Respiratory Rate 18 Blood Pressure 138/87 Pulse Oximetry 95 Oxygen Delivery Method Room Air MDM - Extremity Injury (Upper) <Gregory Skinner PA-C - Last Filed: 06/02/24 17:38> Imaging Data Extremity x-ray #1: Radiologist's Impression: [place] [address] XRay Report Signed Patient: Jolene Nettles MR#: [id number] : 1950 Acct:[id number] Age/Sex: 73 / F Date of Service: 06/02/24 Loc: ED Accession Number: [id number] Procedure: XR hand LT min 3V Ordering Provider: Netta Paul D.O. PROCEDURE: XR HAND LT MIN 3V INDICATIONS: hand caught in door 06/01; damage to 4th and 5th fingers TECHNIQUE: 3 views of the hand(s) acquired. COMPARISON: None. FINDINGS/IMPRESSION: 4th and 5th digit tuft fractures. Dictated by: aKi Morales M.D. on 06/02/2024 at 15:55 Approved by: Kai Morales M.D. on 06/02/2024 at 15:55 MDM Narrative Medical decision making narrative: ED course: this is a 73-year-old female presenting to the emergency department due to distal tuft fractures of the left 4th and 5th digits. Patient's nails were heavily painted and could not tell of any subungual hematoma present. There was a small amount of blood with some superficial abrasions. Keflex prescribed for infection prophylaxis. Patient was placed in a finger splint and record recommended to follow up with the primary care provider for further evaluation and management. CC: Finger pain Complicating co-morbidities: history of osteoarthritis Data collected from: Previous notes Medical records reviewed: patient has not been seen for similar symptoms in the past Differential considered, but not limited to: fracture, tendon injury, contusion Exam documented above, pertinent findings include: tenderness to palpation and ecchymosis at site of fracture, neurovascularly intact Lab Test results independently reviewed as above. Pertinent findings: none obtained Imaging studies independently reviewed: shows distal tuft fractures of the left 4th and 5th digits Scores Used: None MIPS Elements: None Consultations: None Treatments: finger splint placed Re-evaluations: none Discussion: Discussed plan with the patient was comfortable with the plan Diagnosis: 4th and 5th left finger fractures Disposition: see below, along with detailed discharge instructions that have been reviewed with patient as well as indications for ED re-evaluation and additional outpatient follow up Discharge Plan Departure Patient Disposition: Home Clinical Impression: Finger fracture, left Activity Restrictions/Additional Instructions: Thank you for coming to the [facility] Emergency Department today. as we discussed you have fractures to the distal tips of your left ring finger and pinky. I recommend ibuprofen Tylenol as needed for pain. I recommend he follow up with the primary care provider next week for further evaluation and management. Please take the antibiotics to avoid any kind of infection. Please return to the emergency department if you develop any Significant new or worsening pain, numbness, redness spreading up your hand, or any other concerning signs or symptoms. I hope you feel better soon. Please follow up with your primary care provider within a week if your symptoms continue. If you do not have a primary care provider please contact the [facility] Resource line at [phone]. They will ask some questions about your medical history and help you get set up with a provider in the community. Prescriptions: New cephalexin 500 mg capsule 500 mg PO QID Qty: 28 0RF No Action naproxen sodium [Aleve] 220 MG tablet 220 mg PO PRN PRN (Reason: Headache) Qty: 0 capsaicin [Arthritis Pain Relief(capsaic)] 0.075 % Cream 1 applic TOPICAL BEDTIME Claritin-D 12 Hour 5-120 mg Tablet Extended Release 12 Hr 1 tab PO DAILY PRN (Reason: allergies) lisinopril 2.5 mg Tablet 2.5 mg PO DAILY metformin 500 mg tablet 500 mg PO BID Referrals: Casimiro Segundo ARNP [Primary Care Provider] - Stand Alone Forms: Patient Portal/API/Survey ED Sign-out <Netta Paul DO - Last Filed: 06/03/24 09:53> Cosign ED Attending Aak[place]ure Attestation: I was immediately available in the department for consultation.
== END 2024-06-02 18:00 | disposition home or self-care (01) ==
PROVIDERS: Emergency Provider Physician Assistant Medical; PCP Nurse Practitioner Family
DX: S62.635A Displaced fracture of distal phalanx of left ring finger, initial encounter for closed fracture (principal); S62.637A Displaced fracture of distal phalanx of left little finger, initial encounter for closed fracture; W23.0XXA Caught, crushed, jammed, or pinched between moving objects, initial encounter
CPT/HCPCS: 29130; 73130; 99281; 99283

== ENCOUNTER → 2024-10-10 14:37 | Outpatient (CLI) | payer MEDICARE, OTHER, SELFPAY ==
--- NOTE | 2024-10-10 14:42 | DI.CT.S_ITS ---
PROCEDURE: CT LUNG LOW DOSE SCREENING INDICATIONS: lung cancer screening TECHNIQUE: Noncontrast 2.0-2.5 mm thick sections acquired from the pulmonary apices to the posterior costophrenic angles. 7 mm thick axial MIP, and 5 mm coronal and sagittal reformats were then acquired. For radiation dose reduction, the following was used: automated exposure control, adjustment of mA and/or kV according to patient size. COMPARISON: [facility], CR, XR CHEST 1V, 06/04/2022, 0:35. FINDINGS: Image quality: Diagnostic. Lower Neck: No enlarged lymph nodes. Thyroid: No thyroid nodules which require sonographic follow up, per consensus guidelines. Axillae: No enlarged lymph nodes. Chest Wall: Unremarkable. Bones: Visualized osseous structures appear intact without acute fracture or focal destructive lesion. No acute compression fractures of the imaged spine. Lungs and Pleura: No pneumothorax or pleural effusions. 5 mm anterior left upper lobe nodule (91/series 3). There are scattered areas of subpleural reticular opacities and mild scarring/fibrosis involving the bilateral upper lobes and mildly involving the bilateral lower lobes. Upper lobe predominant pulmonary emphysematous changes. No septal nodularity. Visualized airways appear clear. Heart: Heart size is normal. No pericardial effusion. Multivessel atherosclerotic calcifications of the coronary arteries. Thoracic Vessels: The aorta and pulmonary arteries demonstrate normal size. Atherosclerotic calcifications of the aortic arch are present. Mediastinum and Ashley: No enlarged lymph nodes. Esophagus: No wall thickening. Small hiatal hernia. Upper Abdomen: Suggestion of mild nodular liver contour. There is mild splenomegaly. IMPRESSION: There is a 5 mm left upper lobe pulmonary nodule. This is probably benign. LUNG-RADS 3; recommend follow-up chest CT in 6 months to document stability. Mild upper lobe predominant emphysema with scattered bilateral subpleural scarring/fibrosis. Suggestion of possible nodular liver contour. Mild splenomegaly. Consider further evaluation with abdominal ultrasound. Clinically Significant Non-pulmonary Findings: Coronary atherosclerosis. Dictated by: Frandy Ag M.D. on 10/11/2024 at 11:09 Approved by: Frandy Ag M.D. on 10/11/2024 at 11:59
--- NOTE | 2024-10-10 14:43 | DI.US.S_ITS ---
PROCEDURE: US THYROID INDICATIONS: F/U NODULES TECHNIQUE: Real-time scanning was performed of the thyroid gland, with image documentation. COMPARISON: [facility], US, US THYROID, 11/14/2023, 13:48. FINDINGS: Thyroid: Right lobe measures 6.9 x 2.3 x 2.6 cm. Left lobe measures 5.7 x 1.8 x 2.3 cm. Isthmus is 0.3 cm thick. Echotexture is heterogeneous. Nodule number: 1 Location: Right mid thyroid lobe Size: 1.5 x 1.1 x 1.3 cm. Composition: Predominantly cystic Echogenicity: Isoechoic Shape: wider than tall. Margins: Smooth Echogenic foci: None Total points: 1 ACR TI-RADS category: TI-RADS 2 (not suspicious) Nodule number: 2 Location: Right inferior/posterior thyroid lobe Size: 1.1 x 1.0 x 1.2 cm. Composition: Solid Echogenicity: Hypoechoic Shape: wider than tall. Margins: Smooth Echogenic foci: None Total points: 4 ACR TI-RADS category: TIRADS 4 (moderately suspicious) Nodule number: 3 Location: Right inferior/anterior thyroid lobe Size: 1.4 x 0.8 x 1.6 cm. Composition: Predominantly solid Echogenicity: Isoechoic Shape: wider than tall. Margins: Smooth Echogenic foci: None Total points: 3 ACR TI-RADS category: TIRADS 3 (mildly suspicious) Nodule number: 4 Location: Left superior thyroid lobe Size: 1.4 x 0.7 x 0.9 cm. Composition: Solid Echogenicity: Hypoechoic Shape: wider than tall. Margins: Smooth Echogenic foci: None Total points: 4 ACR TI-RADS category: TIRADS 4 (moderately suspicious) IMPRESSION: Multiple bilateral thyroid nodules as detailed above. Per consensus criteria, recommend follow-up thyroid ultrasound in 1 year to document continued stability. ACR TI-RADS definitions and recommendations: TI-RADS 1 (benign): 0 points. FNA not needed. TI-RADS 2 (not suspicious): 2 points. FNA not needed. TI-RADS 3: 3 points. * FNA if 2.5 cm or larger, follow up if 1.5 cm or larger (at 1, 3, and 5 years). TI-RADS 4: 4-6 points. * FNA if 1.5 cm or larger, follow up if 1 cm or larger (at 1, 2, 3, and 5 years). TI-RADS 5: 7 points or more. * FNA if 1 cm or larger, follow up if 0.5 cm or larger (every year for 5 years). Dictated by: Frandy Ag M.D. on 10/11/2024 at 10:46 Approved by: Frandy Ag M.D. on 10/11/2024 at 10:49
== END ==
LOC: CT 14:38
PROVIDERS: PCP Nurse Practitioner Family
DX: E04.2 Nontoxic multinodular goiter (principal); R91.1 Solitary pulmonary nodule; J43.9 Emphysema, unspecified; R16.1 Splenomegaly, not elsewhere classified; I25.10 Atherosclerotic heart disease of native coronary artery without angina pectoris; I70.0 Atherosclerosis of aorta; K44.9 Diaphragmatic hernia without obstruction or gangrene; Z87.891 Personal history of nicotine dependence
CPT/HCPCS: 71271; 76536

== ENCOUNTER 2024-11-21 08:18 | Day surgery (SDC) | payer MEDICARE, OTHER, SELFPAY ==
--- NOTE | 2024-11-21 | PATH_ITS ---
[facility] Accession Number: [id number] No. of containers..01 Tissue . 01 Material submitted: . colon - CECAL POLYP . 01 Diagnosis: CECAL POLYP: Tubular adenoma. MRV 11/29/2024 1547 Local . 01 Electronically signed: . Patrice Salazar MD, PhD, Pathologist NPI- [id number] . 01 Gross description: . Received is one formalin-filled container labeled with the patient's name labeled cecal polyp, are multiple fragments of olmedo, soft tissue which range in size from less than 0.1 cm to 0.7 x 0.2 x 0.2 cm. All fragments are totally submitted in cassette A1. ([id number]) /MARIA DEL ROSARIO 11/27/2024 0613 Local . 01 Pathologist provided ICD-10: D12.0 . 01 CPT . 482473 Specimen Comment: A courtesy copy of this report has been sent to [phone] Performed at: [address] [facility] [address], [place], [place] [id number] MD Danny Pedroza MD Phone: [phone]
[2024-11-21 08:38] VITALS: BP 134/71; PULSE 75; RESP 16; TEMP 36.3; O2SAT 95
--- NOTE | 2024-11-21 08:39 | PM.HP.IH.1 ---
History of Present Illness History of Present Illness Date Patient Seen: 11/21/24 Time Patient Seen: 08:39 Chief complaint: Screening Colonoscopy Narrative: Jolene is a 74 year old woman here for a colonoscopy. Her last was in [address] Farias and there was one tubular adenoma removed. [facility] Medical History Arthritis Cataract fragments in both eyes following surgery Chronic seasonal allergic rhinitis Hearing loss History of snoring Insomnia due to medical condition Obstructive sleep apnea, adult Surgical History History of hysterectomy with oophorectomy History of total knee arthroplasty Social History household members: spouse alcohol intake: never Meds Home Medications and Allergies Home Medications ?Medication ?Instructions ?Recorded ?Confirmed ?Type naproxen sodium 220 mg tablet 220 mg PO PRN PRN Headache ##0 04/15/11 11/22/21 History (Aleve) capsaicin 0.075 % topical cream 1 applic topical BEDTIME 10/31/18 11/22/21 History (Arthritis Pain Relief (capsaicin)) loratadine 5 mg-pseudoephedrine ER 1 tab PO DAILY PRN allergies 10/31/18 11/22/21 History 120 mg tablet,extended release,12hr (Claritin-D 12 Hour) metformin 500 mg tablet 500 mg PO BID 04/21/20 11/21/24 History lisinopril 2.5 mg tablet 2.5 mg PO DAILY 11/22/21 11/21/24 History Allergies Allergy/AdvReac Type Severity Reaction Status Date / Time oxycodone Allergy Intermediate Rash Verified 11/21/24 08:37 adhesive Allergy Mild REDNESS/ITC Verified 11/21/24 08:37 HY hydrocodone Allergy Mild Rash Verified 11/21/24 08:37 Exam Const General: No acute distress Assessment & Plan Assessment and plan (1) History of colon polyps: Status: Acute Plan Colonoscopy Time-Based Coding :: [TOTAL MINUTES] spent with patient and on the chart (including review of chart, obtaining history, exam, reviewing outside data, placing orders, documenting exam and treatment plan, and counseling patient) on [DATE]. [employer] Document charge(s): No
[2024-11-21] MEDS: LACTATED RINGERS 1,000 ML 42 ML IV (08:48)
[2024-11-21 09:35] VITALS: BP 120/57; BP 120/59; PULSE 70; RESP 16; RESP 9; TEMP 36.1; O2SAT 96
--- NOTE | 2024-11-21 09:37 | PM.OP.COLON ---
Operative Date/Time/Diagnoses Date of procedure: 11/21/24 Time of procedure: 09:37 Pre-op diagnosis: History of polyps Post-op diagnosis: same Procedure & Clinicians Study performed: Colonoscopy Same procedure(s) as scheduled: Yes Surgeon: Dom Ann Anesthesia Type: MAC +/- Procedure Notes Procedure in detail: Surgeon: Dom Ann MD Anesthesia: Mary Montenegro CRNA Procedure: The patient was brought to the endoscopy suite, placed in left lateral decubitus position. The patient was connected to monitoring devices. A time-out was performed. Sedation was administered. Once the patient was adequately sedated, a digital rectal exam was performed and was normal. The scope was then inserted and advanced to the cecum where the appendiceal orifice was identified and photographed. The scope was then slowly withdrawn over greater than 6 minutes. The mucosa was thoroughly inspected. There was a 2 cm linear polyp in the cecum along a fold. This was removed piecemeal with a cold snare. No other polyps were found. The scope was retroflexed in the rectum. The scope was straightened and removed. The patient was awakened and brought to recovery. Scope withdrawal time: 20 minutes Sedation time: 28 minutes EBL: 5 mL Findings: 2 cm linear polyp in the cecum Post-procedure Disposition: PACU
[2024-11-21 09:40] VITALS: BP 131/66; PULSE 66; RESP 21; O2SAT 98
[2024-11-21 09:45] VITALS: BP 120/65; PULSE 68; RESP 27; O2SAT 96
[2024-11-21 09:50] VITALS: BP 116/67; PULSE 68; RESP 22; O2SAT 95
== END 2024-11-21 10:05 | disposition home or self-care (01) ==
PROVIDERS: PCP Nurse Practitioner Family; Referring Provider Nurse Practitioner Family; Visit Provider Surgery
PROC: 0DJD8ZZ Inspection of Lower Intestinal Tract, Via Natural or Artificial Opening Endoscopic (ICD-10-PCS; CPT 45378; principal; 2024-11-21 09:45)
DX: Z12.11 Encounter for screening for malignant neoplasm of colon (principal); Z86.0100 Personal history of colon polyps, unspecified; D12.0 Benign neoplasm of cecum
CPT/HCPCS: 45385; 82962; J2704